=== PATIENT | female | born 1955 ===

== ENCOUNTER 2025-06-27 12:33 | Outpatient (CLI) | payer MEDICARE, SELFPAY ==
--- NOTE | 2025-06-27 | DI.CT_ITS ---
Exam(s) CT FACIAL WO EXAM: CT FACIAL WO CLINICAL HISTORY: CONTUSION FACE S00.83XA. TECHNIQUE: Imaging Protocol: Axial computed tomography images with coronal and sagittal reformatted images were created and reviewed CONTRAST MATERIAL: Intravenous: Omnipaque 350 Contrast volume:100 ml contrast route:IV - COMPARISON: No exams were available for comparison FINDINGS: Facial Bones: No fracture is noted in the facial bones. Sinuses and Mastoids: Unremarkable. Globes, extraocular muscles, optic nerves and retrobulbar fat: Normal. Upper aerodigestive tract: Normal. Mandible and bilateral temporomandibular joints: Normal. Soft tissues: Soft tissue swelling of the left cheek IMPRESSION: No evidence of facial fracture. RADIATION DOSE DELIVERED: 186.93mGy.cm Total DLP DATA REPOSITORY: All CT scans at this facility are submitted to the National Rad[employer] Data Registry (NRDR) Dose Index Registry (DIR) with the [employer] ([employer]). RADIATION OPTIMIZATION: All CT scans at this facility use at least one of these dose optimization techniques: automated exposure control; mA and/or kV adjustment per patient size (includes targeted exams where dose is matched to clinical indication); or iterative reconstruction.
== END 2025-06-27 12:53 ==
PROVIDERS: Visit Provider Physician Assistant Medical
DX: S00.83XA Contusion of other part of head, initial encounter (principal); X58.XXXA Exposure to other specified factors, initial encounter
CPT/HCPCS: 70486